=== PATIENT | male | born 1970 | race Caucasian/White ===

== ENCOUNTER 2017-10-05 07:31 | Emergency (ER) | payer BC ==
[2017-10-05 07:47] VITALS: BP 132/77
--- NOTE | 2017-10-05 08:05 | UC ---
Throat Pain/Nasal Tone HPI - HPI Summary HPI Summary: 47 yo male with one day hx of sore throat/congestion and left otalgia no f/c no lomax or myalgias - History of Current Complaint Chief Complaint: UCRespiratory Stated Complaint: SORE THROAT,EARS Time Seen by Provider: 10/05/17 07:48 Hx Obtained From: Patient Onset/Duration: Gradual Onset, Lasting Hours Severity: Mild Pain Intensity: 3 Pain Scale Used: 0-10 Numeric Cough: None Associated Signs & Symptoms: Positive: Nasal Discharge. Negative: Dysphagia, FB Sensation, Drooling, Hoarseness, Sinus Discomfort, Fever, Vomiting, Rash - Epiglottits Risk Factors Epiglottis Risk Factors: Negative - Allergies/Home Medications Allergies/Adverse Reactions: Allergies Allergy/AdvReac Type Severity Reaction Status Date / Time No Known Allergies Allergy Verified 10/05/17 07:41 Home Medications: Home Medications Pregabalin CAP(*) [Lyrica CAP(*)] 50 mg PO DAILY 10/05/17 [History Confirmed ] Pregabalin CAP(*) [Lyrica CAP(*)] 100 mg PO BID 10/05/17 [History Confirmed ] PMH/Surg Hx/FS Hx/Imm Hx Previously Healthy: Yes Endocrine History: Diabetes - Surgical History Surgical History: Yes Surgery Procedure, Year, and Place: Lumbar Discectomy, T&A, Ear Tubes as a child - Family History Known Family History: Positive: Cardiac Disease, Hypertension, Diabetes - Social History Alcohol Use: None Substance Use Type: None Smoking Status (MU): Never Smoked Tobacco - Immunization History Most Recent Influenza Vaccination: 2017 Review of Systems Constitutional: Negative Skin: Negative Eyes: Negative ENT: Sore Throat, Ear Ache, Nasal Discharge Respiratory: Negative Cardiovascular: Negative Gastrointestinal: Negative Genitourinary: Negative Motor: Negative Neurovascular: Negative Musculoskeletal: Negative Neurological: Negative Psychological: Negative Is Patient Immunocompromised?: No All Other Systems Reviewed And Are Negative: Yes Physical Exam Triage Information Reviewed: Yes Appearance: Well-Appearing, No Pain Distress, Well-Nourished Vital Signs: Initial Vital Signs Temp 96.9 F 10/05/17 07:43 Pulse 67 10/05/17 07:43 Resp 20 10/05/17 07:43 BP 132/77 10/05/17 07:43 Pulse Ox 98 10/05/17 07:43 Vital Signs Reviewed: Yes Eyes: Positive: Conjunctiva Clear ENT: Positive: Pharyngeal erythema, Nasal congestion, TM bulging - left, TM dull - left. Negative: Hearing grossly normal - decreased hearing left ear Dental Exam: Normal Neck: Positive: Supple, Nontender, No Lymphadenopathy Respiratory: Positive: Lungs clear, Normal breath sounds, No respiratory distress, No accessory muscle use Cardiovascular: Positive: RRR, No Murmur Abdominal Exam: Normal Bowel Sounds: Positive: Present Musculoskeletal Exam: Normal Neurological: Positive: Alert Psychological Exam: Normal Skin Exam: Normal Throat Pain/Nasal Course/Dx - Differential Dx/Diagnosis Provider Diagnoses: left serous otitis media. viral URI Discharge - Discharge Plan Condition: Stable Disposition: HOME Prescriptions: Fluticasone NASAL SPRAY 50MCG* [Flonase NASAL SPRAY 50MCG*] 2 spray BOTH NARES DAILY #1 btl Patient Education Materials: Serous Otitis Media (ED) Referrals: Bird Mccann DO [Primary Care Provider] - 3 Days Additional Instructions: rest AFRIN nasal spray 2 sprays each nostril three times daily x three days flonase recheck for new or worsening symptoms
== END 2017-10-05 08:16 | disposition home or self-care (01) ==
LOC: UCCORT 07:31
DX: J06.9 Acute upper respiratory infection, unspecified (principal); H65.92 Unspecified nonsuppurative otitis media, left ear; E11.9 Type 2 diabetes mellitus without complications
CPT/HCPCS: 87651; 99212; G0463

== ENCOUNTER 2017-11-16 07:31 | Emergency (ER) | payer BC ==
[2017-11-16 07:48] VITALS: BP 138/70
--- NOTE | 2017-11-16 07:59 | UC ---
Respiratory Complaint HPI - HPI Summary HPI Summary: Cough and congestion and fever for about 2-3 days. No lung disease. He has DM II on metformin alone. No babies or elderly at home. - History of Current Complaint Chief Complaint: UCRespiratory Stated Complaint: COUGH/FEVER Time Seen by Provider: 11/16/17 07:46 Hx Obtained From: Patient Onset/Duration: Gradual Onset, Lasting Days Timing: Constant Severity Initially: Moderate Severity Currently: Moderate Pain Intensity: 0 Character: Cough: Nonproductive Aggravating Factors: Deep Breaths, Recumbent Position Alleviating Factors: Upright Position, Spontaneous Resolution Associated Signs And Symptoms: Positive: Fever, URI, Nasal Congestion. Negative : Hemoptysis, Dizziness, Calf Pain, Calf Swelling, Sinus Discomfort - Allergies/Home Medications Allergies/Adverse Reactions: Allergies Allergy/AdvReac Type Severity Reaction Status Date / Time No Known Allergies Allergy Verified 11/16/17 07:48 PMH/Surg Hx/FS Hx/Imm Hx Previously Healthy: No - sinusitis. - Surgical History Surgical History: Yes Surgery Procedure, Year, and Place: Lumbar Discectomy, T&A, Ear Tubes as a child - Family History Known Family History: Positive: Cardiac Disease, Hypertension, Diabetes - Social History Occupation: Employed Full-time Lives: With Family Alcohol Use: None Substance Use Type: None Smoking Status (MU): Never Smoked Tobacco - Immunization History Most Recent Influenza Vaccination: 2017 Review of Systems Constitutional: Fever Respiratory: Cough All Other Systems Reviewed And Are Negative: Yes Physical Exam Triage Information Reviewed: Yes Appearance: Well-Appearing, No Pain Distress, Well-Nourished Vital Signs: Initial Vital Signs Temp 98.9 F 11/16/17 07:43 Pulse 77 11/16/17 07:43 Resp 18 11/16/17 07:43 BP 138/70 11/16/17 07:43 Pulse Ox 97 11/16/17 07:43 Vital Signs Reviewed: Yes Eye Exam: Normal Eyes: Positive: Conjunctiva Clear ENT: Positive: Normal ENT inspection, Pharynx normal, Nasal congestion, TMs normal, Uvula midline. Negative: Nasal drainage, TM bulging, TM dull, TM red, Tonsillar swelling, Tonsillar exudate, Trismus, Muffled voice, Hoarse voice, Dental tenderness, Sinus tenderness Neck: Positive: Supple, Nontender, No Lymphadenopathy Respiratory: Positive: Chest non-tender, Lungs clear, Normal breath sounds, No respiratory distress, No accessory muscle use. Negative: Respiratory distress, Decreased breath sounds, Accessory muscle use, Crackles, Rhonchi, Stridor, Wheezing Cardiovascular: Positive: RRR, No Murmur Abdomen Description: Positive: No Organomegaly, Soft. Negative: Distended, Guarding Musculoskeletal: Positive: Strength Intact Neurological: Positive: Alert, Muscle Tone Normal. Negative: Fatigued Psychological: Positive: Age Appropriate Behavior Skin: Negative: rashes UC Diagnostic Evaluation - Laboratory O2 Sat by Pulse Oximetry: 97 Respiratory Course/Dx - Course Course Of Treatment: possible flu but low risk for complicationsa nd this is day 3. No high risk household contacts. he appears quite well. - Differential Dx/Diagnosis Provider Diagnoses: viral illness. Viral URI. Discharge - Discharge Plan Condition: Good Disposition: HOME Patient Education Materials: Upper Respiratory Infection (ED) Referrals: Bird Mccann DO [Primary Care Provider] -
== END 2017-11-16 07:59 | disposition home or self-care (01) ==
LOC: UCCORT 07:31
DX: B34.9 Viral infection, unspecified (principal); J06.9 Acute upper respiratory infection, unspecified; E11.9 Type 2 diabetes mellitus without complications; Z79.84 Long term (current) use of oral hypoglycemic drugs
CPT/HCPCS: 99211; G0463

== ENCOUNTER 2018-07-15 15:58 | Emergency (ER) | payer BC ==
--- OUTSIDE RECORDS SUMMARY | 2018-07-15 16:14 | XMS REPORT | Continuity of Care Document ---
:1970 External Reference #:[id number] Author Name Delma Wright NP Address [address] [place] [address] Care Team Providers Name Role Phone Antwan Thomas DO Care Team Information Invasive Cardiologist Unavailable Antwan Thomas DO Primary Care Physician Unavailable Payers Type Date Identification Numbers Payment Provider Subscriber Policy Number: [id number] BS CNY Reynaldo Gonzalez PayID: [id number] [address] [address] [place] [address] Advance Directives Description No Information Available Problems Description No Information Family History Date Family Member(s) Problem(s) Comments Father Hearing Loss Mother Cancer Social History Type Date Description Comments Sex Unknown 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 every day Lyrica / Active Capsules 1 by Unknown 0000 mouth twice a day Metformin HCL / Active Tablets 1 by Unknown 0000 mouth twice a day No Active 09/19/ Hx Unknown Medications 2013 - 2015 Immunizations Description No Information Available Vital Signs Date Vital Result Comment 07/13/2018 3:27pm Weight 237.00 lb Height 65 inches 5'5" BMI (Body Mass Index) 39.4 kg/m2 BP Systolic 123 mmHg BP Diastolic 66 mmHg Heart Rate 79 /min O2 % BldC Oximetry 94 % Body Temperature 98.1 F Pain Level 0 04/09/2018 11:38am Weight 231.00 lb Height 65 inches 5'5" BMI (Body Mass Index) 38.4 kg/m2 BP Systolic 145 mmHg BP Diastolic 86 mmHg Heart Rate 63 /min O2 % BldC Oximetry 96 % Body Temperature 97.6 F Pain Level 0 01/19/2018 3:14pm Weight 224.00 lb Height 65 inches 5'5" BMI (Body Mass Index) 37.3 kg/m2 BP Systolic 156 mmHg BP Diastolic 101 mmHg Heart Rate 68 /min O2 % BldC Oximetry 95 % Body Temperature 97.6 F Pain Level 0 05/26/2017 9:30am Weight 229.00 lb Height 65 inches 5'5" BMI (Body Mass Index) 38.1 kg/m2 BP Systolic 149 mmHg BP Diastolic 89 mmHg Heart Rate 79 /min O2 % BldC Oximetry 97 % Body Temperature 97.3 F [place] Score 5 Pain Level 0 05/16/2016 9:23am Weight 207.38 lb Height 65 inches 5'5" BMI (Body Mass Index) 34.5 kg/m2 BP Systolic 152 mmHg BP Diastolic 92 mmHg Heart Rate 77 /min O2 % BldC Oximetry 98 % Body Temperature 97.2 F [place] Score 6 03/08/2015 4:05pm Weight 223.25 lb with shoes Height 65 inches 5'5" BMI (Body Mass Index) 37.1 kg/m2 BP Systolic 138 mmHg BP Diastolic 84 mmHg Heart Rate 82 /min O2 % BldC Oximetry 97 % Body Temperature 98.1 F Neck Circumference in inches 7 09/19/2014 3:54pm Weight 235.00 lb Height 65 inches 5'5" BMI (Body Mass Index) 39.1 kg/m2 BP Systolic 136 mmHg BP Diastolic 82 mmHg Heart Rate 76 /min O2 % BldC Oximetry 94 % Body Temperature 97.9 F [place] Score 19 Results Description No Information Available Procedures Date Code Description Status 07/13/2018 11666 Tympanometry Completed 07/13/2018 85886 Audiometry, Comprehensive Completed 04/09/2018 40778 Tympanometry Completed 04/09/2018 74503 Audiometry, Comprehensive Completed 02/25/2018 08241 Tympanostomy, Gen. Anesth. Completed 02/25/2018 71577 Anesthesia, Tympanotomy Completed 01/19/2018 77098 Tympanometry Completed 01/19/2018 20056 Audiometry, Comprehensive Completed 11/08/2014 57701 Sleep Staging 4Or More Para Completed 10/10/2014 43361 Sleep Staging 4Or More Para Completed 09/19/2014 94049 Fiberoptic Laryngoscopy,Diag. 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 H69.92 Unspecified 3:15p Eustachian tube disorder, left ear G47.33 Obstructive sleep apnea (adult) (pediatric) Office Visit 05/26/2017 8:30a Main Office Delma Romero G47.33 Obstructive sleep SHARMIN Wright apnea (adult) (pediatric) Office Visit 05/16/2016 9:15a Main Office Delma Romero G47.33 Obstructive sleep SHARMIN Wright apnea (adult) (pediatric) J34.3 Hypertrophy of nasal turbinates Office Visit 03/08/2015 4:15p Main Office Delma Romero 327.23 Obstructive Sleep SHARMIN Wright Apnea Adult & Pediatric Office Visit 10/24/2014 4:00p Main Office Delma Romero 327.23 Obstructive Sleep SHARMIN Wright Apnea Adult & Pediatric Office Visit 09/19/2014 3:30p Main Office Morales Guerra, 780.50 Sleep Disturbance Jasmin Unspec 786.09 Dyspnea & Respiratory Abnormalities Other 530.81 Esophageal Reflux Plan of Treatment Future Appointment(s):01/11/2019 3:30 pm - Delma Wright NP at Main Office
--- OUTSIDE RECORDS SUMMARY | 2018-07-15 16:15 | XMS REPORT | Continuity of Care Document ---
:1970 External Reference #:[id number] Author Name Vani Diaz Care Team Providers Name Role Phone Antwan Thomas DO Care Team Information Showplace Manager Unavailable Antwan Thomas DO Primary Care Physician Unavailable Payers Type Date Identification Numbers Payment Provider Subscriber Policy Number: [id number] BS CNY Reynaldo Gonzalez PayID: [id number] [address] [address] [place] [address] Advance Directives Description No Information Available Problems [...] Oximetry 97 % Body Temperature 97.3 F [place] Score 5 Pain Level 0 05/16/2016 9:23am Weight 207.38 lb Height 65 inches 5'5" BMI (Body Mass Index) 34.5 kg/m2 BP Systolic 152 mmHg BP Diastolic 92 mmHg Heart Rate 77 /min O2 % BldC Oximetry 98 % Body Temperature 97.2 F [place] Score 6 03/08/2015 4:05pm Weight 223.25 lb [...] Oximetry 94 % Body Temperature 97.9 F [place] Score 19 Results Description No Information Available Procedures Date Code Description Status 04/09/2018 27409 Tympanometry Completed 04/09/2018 16232 Audiometry, Comprehensive Completed 02/25/2018 44469 Tympanostomy, Gen. Anesth. Completed 02/25/2018 54335 Anesthesia, Tympanotomy Completed 01/19/2018 85496 Tympanometry Completed 01/19/2018 10107 Audiometry, Comprehensive Completed 11/08/2014 07962 Sleep Staging 4Or More Para Completed 10/10/2014 49917 Sleep Staging 4Or More Para Completed 09/19/2014 40492 Fiberoptic Laryngoscopy,Diag. 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 H69.92 Unspecified 3:15p Eustachian tube disorder, left ear G47.33 Obstructive sleep apnea (adult) (pediatric) Office Visit 05/26/2017 8:30a Main Office Delma Romero G47.33 Obstructive sleep Wright, PRUNE WASHER apnea (adult) (pediatric) Office Visit 05/16/2016 9:15a Main Office Delma A G47.33 Obstructive sleep Kyle, PRUNE WASHER apnea (adult) (pediatric) J34.3 Hypertrophy of nasal turbinates Office Visit 03/08/2015 4:15p Main Office Delma Romero 327.23 Obstructive Sleep Wright, PRUNE WASHER Apnea Adult & Pediatric Office Visit 10/24/2014 4:00p Main Office Delma A 327.23 Obstructive Sleep Wright, PRUNE WASHER Apnea Adult & Pediatric Office Visit 09/19/2014 3:30p Main Office Morales Guerra, 780.50 Sleep Disturbance Jasmin Unspec 786.09 Dyspnea & Respiratory Abnormalities Other 530.81 Esophageal Reflux Plan of Treatment No Information Available
--- OUTSIDE RECORDS SUMMARY | 2018-07-15 16:15 | XMS REPORT ---
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 Bird Mccann DO Primary Care Physician Unavailable Payers Type Date Identification Numbers Payment Provider Subscriber Commercial Effective: Policy Number: [facility] Commercial Reynaldo Gonzalez 2011 [id number] Group Number: [id number] [address] [address] PayID: [id number] [place] [id number] Medigap Part B Effective: Policy Number: [facility] Commercial Reynaldo Miles 2009 [id number] Lisa Expires: 2011 PayID: [id number] [address] [address] [place] [phone] Problems Date Description Provider Status Onset: 10/24/2014 Obstructive sleep apnea of adult Antwan Thomas DO Active Onset: 04/09/2016 Type 2 diabetes mellitus Debbie Cobian M.D. 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 [employer] Work Status Currently Working Hand Dominance RIGHT-handed Cigarette Use Never Smoked Cigarettes ETOH Use Denies alcohol use Smoking Patient has never smoked Allergies, Adverse Reactions, Alerts Date Description Reaction Status Severity Comments 01/12/2015 NKDA active Medications Medication Date Status Form Strength Qnty SIG Indications Ordering Provider Amoxicillin Hx Tablets 875mg 20tabs 1 pill by J01.90 Ramy, 018 - mouth Bird, twice a DO 018 day x 10 days Freestyle Active Strips test every Mccann, Insulinx Blood 018 day and as Bird, Glucose Test needed, DO Strips dx:e11.65 Freestyle Active Misc 200unit as Ramy, Lancets 018 s directed Bird, twice DO daily Lisinopril Active Tablets 5mg 90tabs 1 by mouth E11.9 Mccann, 017 every day Bird, DO Lyrica Active Capsules 50mg 120caps 2 tabs by M51.17 Melfi, 016 mouth Debbie, every M.D. morning, 1 tab every afternoon, and 1 tab in the evening. mdd 4 M51.16 M96.1 Freestyle Lite Test 01/08/2016 Active Strips 100units test daily Mccann, and as Bird, needed dx DO 250.00 mdd 3 Metformin HCL ER 01/31/2015 Active Tablets ER 10 90tabs 1 by mouth E1 Mccann, (Osm) 24HR 00 every in the 1. Bird mg morning 9 DO Methylprednisolone 12/18/2017 - Hx Tablets 4m 21tabs Dose pack as H6 Ramy, 12/24/2017 g instructed 9. Bird, on box 92 DO Fluticasone 12/18/2017 - Hx Suspension 50 16units two sprays H6 Mccann, Propionate 04/13/2018 mc in each 9. Bird g/ nostril once 92 DO Ac daily t Cyclobenzaprine HCL 09/03/2017 - Hx Tablets 5m 30tabs take 1-2 Melfi, 06/29/2018 g tablet by Debbie, mouth at M.D. bedtime as needed Aspirin 07/17/2017 - Hx Tablets DR 81 1 by mouth E1 Martha, 10/08/2017 mg every day 1. Christoph Moncada DO Azithromycin 11/27/2016 - Hx Tablets 50 7tabs 1 by mouth H6 Martha, 02/27/2017 0m every day 5. nicky Moncada 02 DO Claritin-D 12 Hour 11/27/2016 - Hx Tablets ER 5- 60tabs 1 by mouth H6 Martha, 02/27/2017 12HR 12 twice a day 5. Anwtan 0m 02 DO g Aspirin 09/23/2016 - Hx Tablets DR 81 1 by mouth E1 Martha, 02/27/2017 mg every day 1. Antwan, 9 DO Xanax 09/12/2016 - Hx Tablets 0. 2tabs 1 to 2 by Melfi, 10/03/2016 25 mouth 20 Debbie, mg minutes M.D. prior to procedure Cyclobenzaprine HCL 09/12/2016 - Hx Tablets 5m 30tabs take 1-2 Melfi, 11/27/2016 g tablet by Debbie, mouth at M.D. bedtime as needed Valium 04/09/2016 - Hx Tablets 5m 1tabs 1 by mouth Melfi, 06/28/2016 g 45 minutes Debbie, prior to M.D. procedures Dexamethasone 03/28/2016 - Hx Tablets 0. QS 4 po q d x 3 M5 Martha, 04/26/2016 5m days then 3 4. nicky Moncada po q d x 3 16 DO days then 2 po q d x 3 then 3 days then 1 po q d x 3 days then stop Skelaxin 03/28/2016 - Hx Tablets 80 30tabs 1 by mouth M5 Martha, 04/09/2016 0m three times 4. nicky Moncada a day 16 DO Amoxicillin 01/13/2016 - Hx Tablets 87 20tabs 1 by mouth J0 Digiovann 01/23/2016 5m twice a day 1. katy g for 10 days 90 MD Tin Doyle 01/08/2016 - Hx 100units check every Mccann, Misc 10/10/2017 day and as Bird, needed dx: DO 250.00 Loratadine-D 12HR 06/05/2015 - Hx Tablets ER 5- 60tabs 1 PO bid 38 Martha, 09/04/2015 12HR 12 1. Maximo Moncadam 81 DO g Fluticasone 06/05/2015 - Hx Suspension 50 1units 2 sprays 38 Martha, Propionate 09/04/2015 mc each nare 1. nicky Moncada/ every day 81 DO Ac t Glumetza 09/30/2014 - Hx Tablets ER 50 30tabs take 1 Martha, 01/31/2015 24HR 0m tablets by nicky Moncada mouth every DO day with meal Cyclobenzaprine HCL - Hx Tablets 10 30tabs 1 po QHS prn Melfi, 05/21/2016 mg Jasmin Lewis Lyrica - Hx Capsules 50 30caps take 2 caps Melfi, 08/15/2016 mg by mouth Debbie, three times M.D. a day Hydrocodone-Acetamin - Hx Tablets 5- 1 every 6 Unknown ophen 04/26/2016 32 hours as 5m needed g Lyrica - Hx Capsules 10 1 by mouth Melfi, 07/31/2016 0m three times Debbie saunders a day Medications Administered in Office Medication Date Status Form Strength Qnty SIG Indications Ordering Provider Low Osmolar 09/19/ Administered Injection Melfi, Contrast 2015 Debbie, Material M.D. 200-299MG/ML Iodine 1ML Decadron 1MG 09/19/ Administered Injection Melfi, Dexamethasone 2015 Debbie, Sodium Phosphate M.D. 1MG Low Osmolar 05/06/ Administered Injection Melfi, Contrast 2015 Debbie, Material M.D. 200-299MG/ML Iodine 1ML Decadron 1MG 05/06/ Administered Injection Melfi, Dexamethasone 2015 Debbie, Sodium Phosphate M.D. 1MG Immunizations CPT Code Status Date Vaccine Reaction Lot # [id number] Given 07/27/2017 Influenza Vac, 3 Yrs & Older, Quadrivalent, Split, Im Use Q2037 Given 08/06/2015 Fluvirin Immunization Given At Pharmacy [facility]. [id number] Given 08/06/2015 Influenza Vaccine Preservative Free 6-35 Months Of Age [id number] Given 08/08/2011 Afluria Or Fluvirin Flu Vac VIS DATE 04/30/11 Intramuscular Q2035 Refused 06/29/2018 Afluria Imunization Vital Signs Date Vital Result Comment 06/29/2018 Body Temperature 99.4 F Weight 230.00 lb Heart Rate 78 /min BP Systolic 144 mmHg BP Diastolic 80 mmHg Respiratory Rate 16 /min Height 65 inches 5'5" BMI (Body Mass Index) 38.3 kg/m2 04/13/2018 Weight 230.00 lb Heart Rate 80 /min BP Systolic 138 mmHg BP Diastolic 78 mmHg Respiratory Rate 16 /min Height 65 inches 5'5" BMI (Body Mass Index) 38.3 kg/m2 03/04/2018 Weight 215.00 lb Heart Rate 67 /min BP Systolic 137 mmHg BP Diastolic 82 mmHg Height 65 inches 5'5" BMI (Body Mass Index) 35.8 kg/m2 12/18/2017 Weight 228.00 lb Heart Rate 72 /min BP Systolic 120 mmHg BP Diastolic 80 mmHg Respiratory Rate 18 /min Height 64 inches 5'4" BMI (Body Mass Index) 39.1 kg/m2 10/08/2017 Weight 238.00 lb Heart Rate 76 /min BP Systolic 144 mmHg BP Diastolic 82 mmHg Respiratory Rate 17 /min Height 64 inches 5'4" BMI (Body Mass Index) 40.8 kg/m2 09/03/2017 Weight 230.00 lb Heart Rate 79 /min BP Systolic 151 mmHg BP Diastolic 94 mmHg Height 64 inches 5'4" BMI (Body Mass Index) 39.5 kg/m2 07/17/2017 Weight 232.00 lb Heart Rate 84 /min BP Systolic 132 mmHg BP Diastolic 86 mmHg Respiratory Rate 18 /min Height 64 inches 5'4" BMI (Body Mass Index) 39.8 kg/m2 02/27/2017 Weight 217.25 lb Heart Rate 72 /min 72 Reg BP Systolic 126 mmHg BP Diastolic 76 mmHg BP Systolic Recheck 128 mmHg BP Diastolic Recheck 78 mmHg Respiratory Rate 16 /min Height 64 inches 5'4" BMI (Body Mass Index) 37.3 kg/m2 11/27/2016 Body Temperature 98.8 F Weight 231.00 lb Heart Rate 78 /min BP Systolic 130 mmHg BP Diastolic 82 mmHg Respiratory Rate 18 /min Height 64 inches 5'4" BMI (Body Mass Index) 39.6 kg/m2 10/03/2016 Weight 221.00 lb Height 64 inches 5'4" BMI (Body Mass Index) 37.9 kg/m2 09/23/2016 Weight 221.44 lb Heart Rate 66 /min 68 Reg BP Systolic 120 mmHg BP Diastolic 80 mmHg BP Systolic Recheck 120 mmHg BP Diastolic Recheck 80 mmHg Respiratory Rate 18 /min Height 64 inches 5'4" BMI (Body Mass Index) 38.0 kg/m2 09/12/2016 Weight 210.00 lb Height 64 inches 5'4" BMI (Body Mass Index) 36.0 kg/m2 06/28/2016 Weight 209.00 lb Height 64 inches 5'4" BMI (Body Mass Index) 35.9 kg/m2 05/21/2016 Weight 209.00 lb Heart Rate 72 /min BP Systolic 132 mmHg BP Diastolic 68 mmHg Respiratory Rate 18 /min Height 64 inches 5'4" BMI (Body Mass Index) 35.9 kg/m2 04/26/2016 Weight 218.00 lb Height 64 inches 5'4" BMI (Body Mass Index) 37.4 kg/m2 04/09/2016 Weight 218.00 lb Heart Rate 91 /min BP Systolic 110 mmHg BP Diastolic 80 mmHg Height 64 inches 5'4" BMI (Body Mass Index) 37.4 kg/m2 04/04/2016 Weight 213.00 lb Heart Rate 74 /min BP Systolic 128 mmHg BP Diastolic 74 mmHg Respiratory Rate 18 /min Height 64 inches 5'4" BMI (Body Mass Index) 36.6 kg/m2 03/28/2016 Weight 213.00 lb Heart Rate 72 /min BP Systolic 142 mmHg BP Diastolic 90 mmHg Respiratory Rate 18 /min Height 64 inches 5'4" BMI (Body Mass Index) 36.6 kg/m2 01/30/2016 Weight 216.00 lb Heart Rate 78 /min 80 Reg BP Systolic 120 mmHg BP Diastolic 80 mmHg BP Systolic Recheck 120 mmHg BP Diastolic Recheck 80 mmHg Respiratory Rate 18 /min Height 64 inches 5'4" BMI (Body Mass Index) 37.1 kg/m2 01/13/2016 Body Temperature 99.3 F Weight 236.00 lb Heart Rate 86 /min BP Systolic 134 mmHg BP Diastolic 82 mmHg Respiratory Rate 18 /min Height 65 inches 5'5" O2 % BldC Oximetry 96 % Ra BMI (Body Mass Index) 39.3 kg/m2 09/04/2015 Weight 238.00 lb Heart Rate 66 /min BP Systolic 124 mmHg BP Diastolic 78 mmHg Respiratory Rate 16 /min Height 65 inches 5'5" BMI (Body Mass Index) 39.6 kg/m2 06/05/2015 Weight 236.00 lb Heart Rate 72 /min 72 Reg BP Systolic 130 mmHg BP Diastolic 90 mmHg BP Systolic Recheck 130 mmHg BP Diastolic Recheck 80 mmHg Respiratory Rate 24 /min Height 64.5 inches 5'4.50" BMI (Body Mass Index) 39.9 kg/m2 01/31/2015 Weight 226.00 lb Heart Rate 82 /min BP Systolic 144 mmHg BP Diastolic 86 mmHg BP Systolic Recheck 138 mmHg BP Diastolic Recheck 86 mmHg Respiratory Rate 18 /min Height 64.5 inches 5'4.50" BMI (Body Mass Index) 38.2 kg/m2 09/30/2014 Weight 230.00 lb Heart Rate 74 /min BP Systolic 132 mmHg BP Diastolic 86 mmHg Respiratory Rate 18 /min Height 64.5 inches 5'4.50" 08/30/2014 BP Systolic 130 mmHg BP Diastolic 84 mmHg 08/30/2014 Weight 235.00 lb Heart Rate 66 /min 68 Reg BP Systolic 130 mmHg BP Diastolic 90 mmHg Respiratory Rate 18 /min Height 64.5 inches 5'4.50" 07/13/2014 Body Temperature 97.8 F Weight 240.00 lb Heart Rate 82 /min BP Systolic 130 mmHg BP Diastolic 80 mmHg Respiratory Rate 18 /min Height 65 inches 5'5" 03/01/2014 Body Temperature 98.3 F Weight 233.00 lb Heart Rate 88 /min BP Systolic 142 mmHg BP Diastolic 96 mmHg Respiratory Rate 18 /min Height 65 inches 5'5" Results Test Date Test Result H/L Range Note Hemoglobin A1c 06/16/2018 Hemoglobin A1c 6.1 % High 4.1-5.9 Estimated Average Glucose Calc 128 mg/dL 71-140 Comprehensive Met Panel-FCMG 06/16/2018 Sodium 138 mmol/L 135-146 1 Potassium 4.2 mmol/L 3.5-5.2 Chloride# 102 mmol/L 97-110 2 Carbon Dioxide 27 mmol/L 24-34 Glucose 88 mg/dL 70-105 BUN 11 mg/dL 6-26 Creatinine 0.8 mg/dL 0.5-1.4 Calcium 9.6 mg/dL 8.5-10.2 Total Protein 6.8 g/dL 6.0-8.0 Albumin 4.4 g/dL 3.6-4.9 Globulin 2.4 g/dL 2.0-3.5 A/G Ratio 1.8 Ratio 1.0-2.2 Total Bilirubin 0.9 mg/dL 0.1-1.3 Alkaline Phosphatase 42 U/L 24-140 Alt 48 U/L High 3-42 Ast 33 U/L 8-42 Romina Egfr >60 >60 3 Non Romina Egfr >60 >60 4 Anion Gap 9 mmol/L 5-15 5 Laboratory test finding 06/16/2018 Vitamin D 25 Hydroxy 23 ng/mL Low 30- 100 6 CBC with Auto Diff-fcmg 06/16/2018 WBC 8.5 K/uL 4.1-11.0 RBC 5.34 M/uL 4.60-6.10 Hemoglobin 15.4 gm/dL 13.5-18.0 Hematocrit 45.8 % 41.0-53.0 MCV 85.8 fL 80.0-97.0 MCH 28.9 pg 27.0-32.0 MCHC 33.7 g/dL 32.0-36.0 RDW 13.5 % 11.5-14.5 PLT Count 205 K/ul 140-400 MPV 9.9 FL 7.1-10.7 Neutrophil 63.5 % 35.0-75.0 Lymphocyte 25.6 % 16.0-52.0 Monocyte 8.4 % 2.0-10.0 Eosinophil 2.0 % 0.0-5.0 Basophil 0.5 % 0.0-4.0 Abs Neutrophils 5.4 K/uL 2.1-8.0 Abs Lymphocytes 2.2 K/uL 0.8-5.5 Abs Monocytes 0.7 K/uL 0.1-1.0 Abs Eosinophils 0.2 K/uL 0.0-0.5 Abs Basophils 0.0 K/uL 0.0-0.3 Lipid 06/16/2018 Cholesterol 175 mg/dL 50-199 Triglycerides 54 mg/dL 30-200 HDL 38 mg/dL - 7 Chol/ HDL Ratio 4.6 ratio 4.0-6.7 VLDL 11 mg/dL 2-29 LDL (Calc) 127 mg/dL High 20-99 8 Laboratory test finding 06/16/2018 TSH 2.68 uIU/mL 0.35-4.94 Lipid 12/18/2017 Cholesterol 130 mg/dL 50-199 Triglycerides 45 mg/dL 30-200 HDL 39 mg/dL -71 9 Chol/ HDL Ratio 3.3 ratio Low 4.0-6.7 VLDL 9 mg/dL 2-29 LDL (Calc) 82 mg/dL 20-99 10 Comprehensive Met Panel-FCMG 12/18/2017 Sodium 140 mmol/L 135-146 11 Potassium 4.4 mmol/L 3.5-5.2 Chloride# 103 mmol/L 97-110 12 Carbon Dioxide 28 mmol/L 24-34 Glucose 105 mg/dL 70-105 BUN 13 mg/dL 6-26 Creatinine 0.9 mg/dL 0.5-1.4 Calcium 9.6 mg/dL 8.5-10.2 Total Protein 7.4 g/dL 6.0-8.0 Albumin 4.7 g/dL 3.6-4.9 Globulin 2.7 g/dL 2.0-3.5 A/G Ratio 1.7 Ratio 1.0-2.2 Total Bilirubin 1.1 mg/dL 0.1-1.3 Alkaline Phosphatase 42 U/L 24-140 Alt 57 U/L High 3-42 Ast 40 U/L 8-42 Romina Egfr >60 >60 13 Non Romina Egfr >60 >60 14 Anion Gap 9 mmol/L 5-15 15 Hemoglobin A1c 12/18/2017 Hemoglobin A1c 5.6 % 4.1-5.9 Estimated Average Glucose Calc 114 mg/dL 71-140 Hemoglobin A1c 06/30/2017 Hemoglobin A1c 6.0 % 4.1-6.5 Estimated Average Glucose Calc 126 71-140 Basic (BMP) 06/30/2017 Sodium 141 mmol/L 135-146 16 Potassium 3.9 mmol/L 3.5-5.2 Chloride# 105 mmol/L 97-110 17 Carbon Dioxide 25 mmol/L 24-34 Glucose 69 mg/dL Low 70-105 BUN 11 mg/dL 6-26 Creatinine 0.8 mg/dL 0.5-1.4 Calcium 9.3 mg/dL 8.5-10.2 Non Romina Egfr >60 >60 18 Romina Egfr >60 >60 19 Anion Gap 11 mmol/L 7-16 20 Lipid 06/30/2017 Cholesterol 148 mg/dL 50-199 Triglycerides 46 mg/dL 30-150 HDL 44 mg/dL 40-71 21 Chol/ HDL Ratio 3.3 ratio Low 4.0-6.7 VLDL 9 mg/dL 2-29 LDL (Calc) 95 mg/dL 20-99 22 Hepatic Panel (LFT) 06/30/2017 Total Protein 7.0 g/dL 6.0-8.0 Albumin 4.3 g/dL 3.6-4.9 Total Bilirubin 0.8 mg/dL 0.1-1.3 Direct Bilirubin 0.2 mg/dL 0.0-0.4 Alkaline Phosphatase 49 U/L 24-140 Alt 44 U/L High 3-42 Ast 33 U/L 8-42 Laboratory test finding 06/30/2017 Vit D25oh 22 ng/mL Low 31-100 Laboratory test finding 06/30/2017 Microalbumin, Random 27.4 ug/ml High 0.0-20.0 Urine CBC With Auto Diff 09/18/2016 WBC 9.4 K/uL 4.1-11.0 23 RBC 5.36 M/uL 4.60-6.10 23 Hemoglobin 15.4 gm/dL 13.5-18.0 23 Hematocrit 45.7 % 41.0-53.0 23 MCV 85.2 fL 80.0-97.0 23 MCH 28.7 pg 27.0-32.0 23 MCHC 33.7 g/dL 32.0-36.0 23 RDW 13.1 % 11.5-14.5 23 PLT Count 206 K/ul 140-400 23 Neutrophil 65.1 % 35.0-75.0 23 Lymphocyte 24.3 % 16.0-52.0 23 Monocyte 8.3 % 2.0-10.0 23 Eosinophil 1.8 % 0.0-5.0 23 Basophil 0.5 % 0.0-4.0 23 Abs Neutrophils 6.1 K/uL 2.1-8.0 23 Abs Lymphocytes 2.3 K/uL 0.8-5.5 23 Abs Monocytes 0.8 K/uL 0.1-1.0 23 Abs Eosinophils 0.2 K/uL 0.0-0.5 23 Abs Basophils 0.0 K/uL 0.0-0.3 23 Basic (BMP) 09/18/2016 Sodium 137 mmol/L 134-142 23 Potassium 3.7 mmol/L 3.5-5.2 23 Chloride 101 mmol/L 97-109 23 Carbon Dioxide 27 mmol/L 24-34 23 Glucose 82 mg/dL 70-105 23 BUN 12 mg/dL 6- 23 Creatinine 0.8 mg/dL 0.5-1.4 23 Calcium 9.2 mg/dL 8.5-10.2 23 Anion Gap 13 mmol/L 6-14 23 Non Romina Egfr >60 >60 23, 24 Romina Egfr >60 >60 23, 25 Laboratory test finding 09/18/2016 Hemoglobin A1c 6.0 % 4.1-6.5 23 Microalbumin, Random Urine 20.4 ug/ml High 0.0-20.0 23 BUN/Creat/GFR Panel 04/10/2016 BUN 22 mg/dL 6-26 BUN/CR 23 ratio High 12-20 Creatinine 1.0 mg/dL 0.5-1.4 Romina Egfr >60 >60 26 Non Romina Egfr >60 >60 27 CBC With Auto Diff 12/29/2015 WBC 6.8 K/uL 4.1-11.0 23 RBC 5.40 M/uL 4.60-6.10 23 Hemoglobin 15.5 gm/dL 13.5-18.0 23 Hematocrit 47.4 % 41.0-53.0 23 MCV 87.8 fL 80.0-97.0 23 MCH 28.8 pg 27.0-32.0 23 MCHC 32.8 g/dL 32.0-36.0 23 RDW 13.4 % 11.5-14.5 23 PLT Count 187 K/ul 140-400 23 Neutrophil 61.2 % 35.0-75.0 23 Lymphocyte 27.0 % 16.0-52.0 23 Monocyte 8.7 % 2.0-10.0 23 Eosinophil 2.4 % 0.0-5.0 23 Basophil 0.7 % 0.0-4.0 23 Abs Neutrophils 4.2 K/uL 2.1-8.0 23 Abs Lymphocytes 1.8 K/uL 0.8-5.5 23 Abmon 0.6 K/uL 0.1-1.0 23 Abs Eosinophils 0.2 K/uL 0.0-0.5 23 Abs Basophils 0.0 K/uL 0.0-0.3 23 Comprehensive Metabolic (CMP) 12/29/2015 Sodium 136 mmol/L 134-142 23 Potassium 3.9 mmol/L 3.5-5.2 23 Chloride 103 mmol/L 97-109 23 Carbon Dioxide 26 mmol/L 24-34 23 Glucose 99 mg/dL 70-105 23 BUN 11 mg/dL 6-26 23 Creatinine 0.8 mg/dL 0.5-1.4 23 Calcium 9.5 mg/dL 8.5-10.2 23 Total Protein 7.0 g/dL 6.0-8.0 23 Albumin 4.3 g/dL 3.6-4.9 23 Globulin 2.7 g/dL 2.0-3.5 23 A/G Ratio 1.6 Ratio 1.0-2.2 23 Total Bilirubin 1.2 mg/dL 0.1-1.3 23 Alkaline Phosphatase 45 U/L 24-140 23 Alt 61 U/L High 3-42 23 Ast 42 U/L 8-42 23 Anion Gap 11 mmol/L 6-14 23 Romina Egfr >60 >60 23, 28 Non Romina Egfr >60 >60 23, 29 Lipid 12/29/2015 Cholesterol 119 mg/dL 50-199 23 Triglycerides 45 mg/dL 30-150 23 HDL 35 mg/dL Low 40-71 23, 30 Chol/ HDL Ratio 3.4 ratio Low 4.0-6.7 23 VLDL 9 mg/dL 2-29 23 LDL (Calc) 75 mg/dL 20-99 23, 31 Laboratory test finding 12/29/2015 TSH 1.73 uIU/mL 0.35-4.94 23 Vitamin B12 582 pg/mL 180-914 23 Vit D,25 Hydroxy 20 ng/mL Low 31-100 23 Hemoglobin A1c 5.7 % 4.1-6.5 23 Basic (BMP) 05/29/2015 Sodium 138 mmol/L 134-142 32 Potassium 4.0 mmol/L 3.5-5.2 32 Chloride 104 mmol/L 97-109 32 Carbon Dioxide 27 mmol/L 24-34 32 Glucose 107 mg/dL High 70-105 32 BUN 12 mg/dL 6-26 32 Creatinine 0.8 mg/dL 0.5-1.4 32 Calcium 9.4 mg/dL 8.5-10.2 32 Anion Gap 11 mmol/L 6-14 32 Non Romina Egfr >60 >60 32, 33 Romina Egfr >60 >60 32, 34 Laboratory test finding 05/29/2015 Hemoglobin A1c 6.1 % 4.1-6.5 32 Microalbumin, Random Urine 20.0 ug/ml 0.0-20.0 32 Laboratory test finding 09/30/2014 Glucose 125 mg/dL High 74-106 35 Glycohemoglobin (A1c) 6.6 % High 4.2-6.5 36 eAG 143 mg/dL Laboratory test finding 08/31/2014 % Baso. 1.3 % 0.0-2.0 % Eos. 4.2 % High 0.0-4.0 % Lymph 36 % 20-44 % Vermilion 9.1 % 2.0-10.0 % Coleen 50 % 50-70 A/G Ratio 1.3 ratio Low 1.6-2.2 Absolute Baso. 0.1 K/ul 0.0-0.3 Absolute Eos. 0.3 K/ul 0.0-0.5 Absolute Lymph. 2.4 K/ul 0.8-4.8 Absolute Vermilion. 0.6 K/ul 0.1-1.0 Absolute Coleen. 3.39 K/ul 2.05-7.63 Albumin 4.4 g/dL 3.5-5.0 Alk. Phos. 64.0 U/L 30.0-126.0 Alt 59.0 U/L 21.0-72.0 Anion Gap 9.0 mmol/L Low 10.0-20.0 Ast 37.0 U/L 17.0-59.0 BUN 12.0 mg/dL 9.0-21.0 BUN/Creat Ratio 13.3 ratio 12.0-20.0 Calcium 9.7 mg/dL 8.7-10.5 Chloride 106.0 mmol/L 98.0-107.0 Co2 27.0 mmol/L 22.0-30.0 Creatinine-Serum 0.9 mg/dL 0.8-1.5 Globulin 3.5 g/dL 2.7-4.3 Glucose 143.0 mg/dL High 75.0-110.0 HCT 47.9 % 37.0-51.0 HGB 16.2 Gm/dl High 12.0-16.0 MCH 29.4 pg 26.0-32.0 MCHC 33.9 g/dL 31.0-36.0 MCV 86.9 Fl 80.0-97.0 MPV 8.4 fL 6.0-10.0 PLT 247 K/ul 140-440 Potasium 4.6 mmol/L 3.6-5.0 RBC 5.5 M/ul 4.2-6.3 RDW 11.9 % 11.5-14.5 Sodium 142.0 mmil/L 137.0-145.0 TSH 2.66 uIU/ml 0.50-6.00 Total Bilirubin 0.6 mg/dL 0.2-1.3 Total Protein 7.9 g/dL 6.3-8.2 Vitamin D 24.6 ng/mL Low 30.0-96.0 WBC 6.8 K/ul 4.1-10.9 eGFR 101.5 mi/minper1.73 37 Lipid Panel 08/31/2014 Chol/HDL Ratio 4.9 ratio Cholesterol 183.0 mg/dL 50.0-199.0 HDL 37.0 mg/dL Low 40.0-67.0 LDL, Calculated 124.6 mg/dL 20.0-129.0 Triglycerides 107.0 mg/dL 30.0-150.0 vLDL 21.4 ng/dL 1 Updated reference range on new analyzer 2 Updated reference range on new analyzer 3 Concerning GFR Guidelines for Americans: Normal function or mild renal disease, if clinically at risk: >/=60 mL/min Moderately decreased: 30-59 Severely decreased: 15-29 Renal failure: <15 4 Concerning GFR Guidelines: Normal function or mild renal disease, if clinically at risk: >/=60 mL/min Moderately decreased: 30-59 Severely decreased: 15-29 Renal failure: <15 Glomerular Filtration Rate (GFR) is estimated based on the MDRD equation, which assumes a steady state for creatinine as recommended by the National Kidney Disease Education Program in conjunction with the National Institutes of Health and the National Kidney Foundation. Clinical conditions in which it may be necessary to measure GFR by using clearance methods include extremes of age and body size, severe malnutrition or obesity, diseases of skeletal muscle, paraplegia or quadriplegia, vegetarian diet, rapidly changing kidney function, and calculation of the dose of potentially toxic drugs that are excreted by the kidneys. 5 Updated Reference Range 6 Clinical Guidelines for recommended serum 25(OH)Vitamin D Deficient at less than 20 ng/mL Insufficient at 20 to <30 ng/mL Sufficient at 30-100 ng/mL Toxicity at greater than 100 ng/mL 7 Per NCEP ATP III Guidelines: Results lower than 40 mg/dL are suggestive of increased risk for coronary artery disease. Results > or=to 60 mg/dL are considered a negative risk factor. 8 Per NCEP ATP III Guidelines: Normal Population <130 Patients with medical conditions: CHD/DM Optimal: <100 Borderline high: 130-159 High: 160-189 Very high: >189 9 Per NCEP ATP III Guidelines: Results lower than 40 mg/dL are suggestive of increased risk for coronary artery disease. Results > or=to 60 mg/dL are considered a negative risk factor. 10 Per NCEP ATP III Guidelines: Normal Population <130 Patients with medical conditions: CHD/DM Optimal: <100 Borderline high: 130-159 High: 160-189 Very high: >189 11 Updated reference range on new analyzer 12 Updated reference range on new analyzer 13 Concerning GFR Guidelines for Americans: Normal function or mild renal disease, if clinically at risk: >/=60 mL/min Moderately decreased: 30-59 Severely decreased: 15-29 Renal failure: <15 14 Concerning GFR Guidelines: Normal function or mild renal disease, if clinically at risk: >/=60 mL/min Moderately decreased: 30-59 Severely decreased: 15-29 Renal failure: <15 Glomerular Filtration Rate (GFR) is estimated based on the MDRD equation, which assumes a steady state for creatinine as recommended by the National Kidney Disease Education Program in conjunction with the National Institutes of Health and the National Kidney Foundation. Clinical conditions in which it may be necessary to measure GFR by using clearance methods include extremes of age and body size, severe malnutrition or obesity, diseases of skeletal muscle, paraplegia or quadriplegia, vegetarian diet, rapidly changing kidney function, and calculation of the dose of potentially toxic drugs that are excreted by the kidneys. 15 Updated Reference Range 16 Updated reference range on new analyzer 17 Updated reference range on new analyzer 18 Concerning GFR Guidelines: Normal function or mild renal disease, if clinically at risk: >/=60 mL/min Moderately decreased: 30-59 Severely decreased: 15-29 Renal failure: <15 Glomerular Filtration Rate (GFR) is estimated based on the MDRD equation, which assumes a steady state for creatinine as recommended by the National Kidney Disease Education Program in conjunction with the National Institutes of Health and the National Kidney Foundation. Clinical conditions in which it may be necessary to measure GFR by using clearance methods include extremes of age and body size, severe malnutrition or obesity, diseases of skeletal muscle, paraplegia or quadriplegia, vegetarian diet, rapidly changing kidney function, and calculation of the dose of potentially toxic drugs that are excreted by the kidneys. 19 Concerning GFR Guidelines for Americans: Normal function or mild renal disease, if clinically at risk: >/=60 mL/min Moderately decreased: 30-59 Severely decreased: 15-29 Renal failure: <15 20 Updated reference range on new analyzer 21 Per NCEP ATP III Guidelines: Results lower than 40 mg/dL are suggestive of increased risk for coronary artery disease. Results > or=to 60 mg/dL are considered a negative risk factor. 22 Per NCEP ATP III Guidelines: Normal Population <130 Patients with medical conditions: CHD/DM Optimal: <100 Borderline high: 130-159 High: 160-189 Very high: >189 23 SCHEDULE 1 WEEK PRIOR TO NEXT VISIT 24 Concerning GFR Guidelines: Normal function or mild renal disease, if clinically at risk: >/=60 mL/min Moderately decreased: 30-59 Severely decreased: 15-29 Renal failure: <15 Glomerular Filtration Rate (GFR) is estimated based on the MDRD equation, which assumes a steady state for creatinine as recommended by the National Kidney Disease Education Program in conjunction with the National Institutes of Health and the [employer] Kid[employer]. Clinical conditions in which it may be necessary to measure GFR by using clearance methods include extremes of age and body size, severe malnutrition or obesity, diseases of skeletal muscle, paraplegia or quadriplegia, vegetarian diet, rapidly changing kidney function, and calculation of the dose of potentially toxic drugs that are excreted by the kidneys. 25 Concerning GFR Guidelines for Americans: Normal function or mild renal disease, if clinically at risk: >/=60 mL/min Moderately decreased: 30-59 Severely decreased: 15-29 Renal failure: <15 26 Concerning GFR Guidelines for Americans: Normal function or mild renal disease, if clinically at risk: >/=60 mL/min Moderately decreased: 30-59 Severely decreased: 15-29 Renal failure: <15 27 Concerning GFR Guidelines: Normal function or mild renal disease, if clinically at risk: >/=60 mL/min Moderately decreased: 30-59 Severely decreased: 15-29 Renal failure: <15 Glomerular Filtration Rate (GFR) is estimated based on the MDRD equation, which assumes a steady state for creatinine as recommended by the National Kidney Disease Education Program in conjunction with the National Institutes of Health and the National Kidney Foundation. Clinical conditions in which it may be necessary to measure GFR by using clearance methods include extremes of age and body size, severe malnutrition or obesity, diseases of skeletal muscle, paraplegia or quadriplegia, vegetarian diet, rapidly changing kidney function, and calculation of the dose of potentially toxic drugs that are excreted by the kidneys. 28 Concerning GFR Guidelines for Americans: Normal function or mild renal disease, if clinically at risk: >/=60 mL/min Moderately decreased: 30-59 Severely decreased: 15-29 Renal failure: <15 29 Concerning GFR Guidelines: Normal function or mild renal disease, if clinically at risk: >/=60 mL/min Moderately decreased: 30-59 Severely decreased: 15-29 Renal failure: <15 Glomerular Filtration Rate (GFR) is estimated based on the MDRD equation, which assumes a steady state for creatinine as recommended by the National Kidney Disease Education Program in conjunction with the National Institutes of Health and the National Kidney Foundation. Clinical conditions in which it may be necessary to measure GFR by using clearance methods include extremes of age and body size, severe malnutrition or obesity, diseases of skeletal muscle, paraplegia or quadriplegia, vegetarian diet, rapidly changing kidney function, and calculation of the dose of potentially toxic drugs that are excreted by the kidneys. 30 Per NCEP ATP III Guidelines: Results lower than 40 mg/dL are suggestive of increased risk for coronary artery disease. Results > or=to 60 mg/dL are considered a negative risk factor. 31 Per NCEP ATP III Guidelines: Normal Population <130 Patients with medical conditions: CHD/DM Optimal: <100 Borderline high: 130-159 High: 160-189 Very high: >189 32 PLEASE COLLECT URINE 33 Concerning GFR Guidelines: Normal function or mild renal disease, if clinically at risk: >/=60 mL/min Moderately decreased: 30-59 Severely decreased: 15-29 Renal failure: <15 Glomerular Filtration Rate (GFR) is estimated based on the MDRD equation, which assumes a steady state for creatinine as recommended by the National Kidney Disease Education Program in conjunction with the National Institutes of Health and the National Kidney Foundation. Clinical conditions in which it may be necessary to measure GFR by using clearance methods include extremes of age and body size, severe malnutrition or obesity, diseases of skeletal muscle, paraplegia or quadriplegia, vegetarian diet, rapidly changing kidney function, and calculation of the dose of potentially toxic drugs that are excreted by the kidneys. 34 Concerning GFR Guidelines for Americans: Normal function or mild renal disease, if clinically at risk: >/=60 mL/min Moderately decreased: 30-59 Severely decreased: 15-29 Renal failure: <15 35 QUERY: Is the Patient Fasting? Y 36 Elevated levels of HbA1c suggest the need for more aggressive treatment of glycemia. The [place] [employer] recommends that a primary goal of therapy should be a HbA1c of <7% and that physicians should re-evaluate the treatment regimen in patients with HbA1c values consistently >8%. 37 For -Mex[place] patients multiply result by 1.180 Procedures Date CPT Code Description Status 11/27/2016 19338 Tympanometry Completed 09/19/2016 91812 Tranforaminal Lumbar Or Sacral Epidural Inject Single Completed Level 05/06/2016 22605 Measure Blood Oxygen Level Multiple Determinations Completed 05/06/2016 63993 Tranforaminal Lumbar Or Sacral Epidural Inject Single Completed Level 01/13/2016 70420 Measure Blood Oxygen Level Single Determination Completed Encounters Type Date Location Provider CPT E/M Dx Office Visit 04/13/2018 4:15p [facility] [place] [address] E11.9 H68.002 K76.0 E55.9 M96.1 G47.33 R80.9 Z68.38 Office Visit 03/04/2018 3:30p [place] David [place], [place] [address] M51.17 [place] M79.1 M51.16 Z68.35 Office Visit 12/18/2017 8:00a [facility] [place] [address] H69.92 Office Visit 10/08/2017 3:30p [facility] [place] [address] E11.9 H68.002 K76.0 E55.9 M96.1 G47.33 R80.9 Z68.41 Office Visit 09/03/2017 3:30p MD David Lei [place], [place] [address] M51.17 V[place] M79.1 M51.16 Office Visit 07/17/2017 3:15p [facility] [place] [address] E11.9 K76.0 E55.9 M96.1 G47.33 Office Visit 03/05/2017 3:30p MD David Lei [place], [place] [address] M96.1 Vicki M51.17 M79.1 Office Visit 02/27/2017 3:15p [facility] [place] [address] E11.9 G47.33 M51.16 Z68.37 Office Visit 11/27/2016 9:30a [facility] [place] [address] H65.02 Office Visit 10/03/2016 10:15[place]- [address] M51.16 [place] M96.1 M51.17 Office Visit 09/23/2016 3:15p [facility] [place] [address] E11.9 G47.33 M51.17 R80.9 Office Visit 09/12/2016 10:15[place]- [address] M51.17 Vicki M96.1 M51.16 Office Visit 06/28/2016 3:45p MD [place] Le[place]-C [address] M51.17 [place] M96.1 M51.16 Office Visit 05/21/2016 2:45p [facility] [place] [address] E11.9 G47.33 M51.16 Office Visit 04/26/2016 8:15[place]- [address] M96.1 Vicki M51.17 M51.16 Office Visit 04/09/2016 11:10a MD Vicki Lei Renee, M.D. 70017 M96.1 M51.17 M51.16 M47.817 M47.816 Office Visit 04/04/2016 9:30a [facility] [place] [address] M54.16 Office Visit 03/28/2016 11:00a [facility] [place] [address] M54.16 Office Visit 01/30/2016 3:00p [facility] [place] [address] E11.9 G47.33 Office Visit 01/13/2016 9:45a [facility] [place] [address] J06.9 J01.90 Office Visit 09/04/2015 3:30p [facility] [place] [address] Z00.00 E11.9 G47.33 Office Visit 06/05/2015 3:00p [facility] [place] [address] 250.00 327.23 381.81 Office Visit 01/31/2015 1:45p [facility] Antwan Thomas [address] 250.00 327.23 Plan of Care Future Appointment(s):10/08/2018 3:20 pm - Schedule, Laboratory at [facility]2018 3:15 pm - Bird Mccann DO at [facility]08/10/2018 3:30 pm - Azalea Hernandez PA -C at Debbie Cobian MD Orhhuuw6606/29/2018 - Mirtha Garcia PAJ01.90 Acute sinusitis, unspecifiedNew Medication:Amoxicillin 875 mgComments:Will treat with amoxPush fluidsTylenol/motrin as needed for fever/painSinus rinse as neededCall withany questions or concernsFollow up:PrnZ68.38 Body mass index (BMI) 38.0-38.9 , adult
[2018-07-15 16:46] VITALS: BP 138/86
--- NOTE | 2018-07-15 17:12 | UC ---
General HPI - HPI Summary HPI Summary: Patient is complaining of "a sinus infection". He states that on the 24th of last month he was diagnosed with a sinus infection and treated with amoxicillin after which she completely recovered. He returns for recurrent head congestion and ear plugged sensation in his ears it began last evening. He has no associated fever or chills. - History of Current Complaint Chief Complaint: UCRespiratory Stated Complaint: SINUSES Time Seen by Provider: 07/15/18 16:37 Hx Obtained From: Patient Onset/Duration: Gradual Onset Timing: Constant Pain Intensity: 1 Associated Signs & Symptoms: Negative: Fever, Headache - Allergy/Home Medications Allergies/Adverse Reactions: Allergies Allergy/AdvReac Type Severity Reaction Status Date / Time seasonal Allergy Runny Nose Uncoded 07/15/18 16:47 PMH/Surg Hx/FS Hx/Imm Hx Previously Healthy: Yes - Surgical History Surgical History: Yes Surgery Procedure, Year, and Place: Lumbar Discectomy, T&A, Ear Tubes as a child - Family History Known Family History: Positive: Cardiac Disease, Hypertension, Diabetes - Social History Occupation: Employed Full-time Lives: With Family Alcohol Use: Occasionally Substance Use Type: None Smoking Status (MU): Never Smoked Tobacco - Immunization History Most Recent Influenza Vaccination: 2017 Vaccination Up to Date: Yes Review of Systems Constitutional: Negative Skin: Negative Eyes: Negative ENT: Ear Ache, Sinus Congestion, Sinus Pain/Tenderness Respiratory: Negative Cardiovascular: Negative Gastrointestinal: Negative Genitourinary: Negative Motor: Negative Neurovascular: Negative Musculoskeletal: Negative Neurological: Negative Psychological: Negative Is Patient Immunocompromised?: No All Other Systems Reviewed And Are Negative: Yes Physical Exam Triage Information Reviewed: Yes Appearance: Well-Appearing Vital Signs: Initial Vital Signs Temp 99.3 F 07/15/18 16:39 Pulse 79 07/15/18 16:39 Resp 18 07/15/18 16:39 BP 138/86 07/15/18 16:39 Pulse Ox 97 07/15/18 16:39 Vital Signs Reviewed: Yes Eyes: Positive: Conjunctiva Clear ENT: Positive: Pharynx normal, Nasal congestion, TMs normal, Sinus tenderness - MAXILLARY. Negative: Nasal drainage Neck: Positive: Supple, Nontender, No Lymphadenopathy Respiratory: Positive: Lungs clear, Normal breath sounds Cardiovascular: Positive: RRR, No Murmur Abdomen Description: Positive: Nontender, No Organomegaly, Soft Bowel Sounds: Positive: Present Musculoskeletal: Positive: ROM Intact Neurological: Positive: Alert Psychological: Positive: Age Appropriate Behavior Skin Exam: Normal Course/Dx - Course Course Of Treatment: Patient is nontoxic. He does not have any bloody purulent drainage from his sinuses and he does not have a fever. His symptoms have only been present since last evening. This is consistent with a viral upper respiratory infection a sibling to avoid antibiotics and have them treat with Flonase nasal steroid spray which she has a home and's three-day history of nasal decongestant such as Afrin suggested but patient and advised must discontinue after 3 days of use. - Differential Dx - Multi-Symptom Provider Diagnoses: URI Discharge - Sign-Out/Discharge Documenting (check all that apply): Patient Departure All imaging exams completed and their final reports reviewed: No Studies - Discharge Plan Condition: Stable Disposition: HOME Patient Education Materials: Upper Respiratory Infection (ED) Referrals: Bird Mccann DO [Primary Care Provider] - 5 Days Additional Instructions: CONSIDER FLONASE PER LABEL. CONSIDER AFRIN PER LABEL X 3 DAYS THEN STOP. - Billing Disposition and Condition Condition: STABLE Disposition: Home
== END 2018-07-15 17:21 | disposition home or self-care (01) ==
LOC: UCCORT 15:58
DX: J06.9 Acute upper respiratory infection, unspecified (principal)
CPT/HCPCS: 99211; G0463

== ENCOUNTER 2019-06-23 15:10 | Emergency (ER) | payer BC ==
[2019-06-23 15:42] VITALS: BP 121/71
--- NOTE | 2019-06-23 15:52 | UC ---
Throat Pain/Nasal Tone HPI - HPI Summary HPI Summary: 49-year-old male comes in with several days of upper respiratory tract infection symptoms. He reports dark rhinorrhea and bilateral maxillary sinus tenderness. Also has a sore throat. No cough or chest congestion. Hot steamy shower does help with the congestion. Patient reports when he gets these symptoms the Z-Anam helps. He also has Flonase at home which he has not used. Patient has some ear pressure worse on the right than the left. Had an ear tube placed on the left about 16 months ago. - History of Current Complaint Chief Complaint: UCRespiratory Stated Complaint: OLVERA,EARS,EYES COMPLAINT Time Seen by Provider: 06/23/19 15:25 Pain Intensity: 5 - Allergies/Home Medications Allergies/Adverse Reactions: Allergies Allergy/AdvReac Type Severity Reaction Status Date / Time seasonal Allergy Runny Nose Uncoded 06/23/19 15:46 PMH/Surg Hx/FS Hx/Imm Hx Previously Healthy: Yes - ear tubes Endocrine History: Diabetes - Surgical History Surgical History: Yes Surgery Procedure, Year, and Place: Lumbar Discectomy, T&A, Ear Tubes as a child and in 2017 - Family History Known Family History: Positive: Cardiac Disease, Hypertension, Diabetes - Social History Alcohol Use: Occasionally Substance Use Type: None Smoking Status (MU): Never Smoked Tobacco - Immunization History Most Recent Influenza Vaccination: 2017 Vaccination Up to Date: Yes Review of Systems All Other Systems Reviewed And Are Negative: Yes Constitutional: Positive: Negative Skin: Positive: Negative Eyes: Positive: Negative ENT: Positive: Sore Throat, Ear Ache, Nasal Discharge, Sinus Congestion, Sinus Pain/Tenderness Respiratory: Positive: Negative Cardiovascular: Positive: Negative Gastrointestinal: Positive: Negative Motor: Positive: Negative Neurovascular: Positive: Negative Musculoskeletal: Positive: Negative Neurological: Positive: Negative Psychological: Positive: Negative Is Patient Immunocompromised?: No Physical Exam Triage Information Reviewed: Yes Appearance: Well-Appearing, No Pain Distress, Well-Nourished Vital Signs: Initial Vital Signs Temp 97.7 F 06/23/19 15:33 Pulse 78 06/23/19 15:33 Resp 18 06/23/19 15:33 BP 121/71 06/23/19 15:33 Pulse Ox 98 06/23/19 15:33 Vital Signs Reviewed: Yes Eye Exam: Normal Eyes: Positive: Conjunctiva Clear ENT: Positive: Pharyngeal erythema, Nasal congestion, Nasal drainage, TM dull - rt, Other - There is an ear tube in the left eardrum appears to still be in the TM. Neck: Positive: Supple Respiratory: Positive: Lungs clear, Normal breath sounds, No respiratory distress Cardiovascular: Positive: RRR Musculoskeletal: Positive: Strength Intact, ROM Intact Neurological: Positive: Alert Psychological: Positive: Age Appropriate Behavior Skin Exam: Normal Throat Pain/Nasal Course/Dx - Course Course Of Treatment: DISCUSSED VIRAL VERSES BACTERIAL INFECTION AND THE ROLE OF ANTIBIOTICS. PATIENT PREFERS TO BE ON ANTIBIOTICS AT THIS TIME. - Differential Dx/Diagnosis Provider Diagnosis: Sinusitis Discharge ED - Sign-Out/Discharge Documenting (check all that apply): Patient Departure All imaging exams completed and their final reports reviewed: No Studies - Discharge Plan Condition: Stable Disposition: HOME Prescriptions: Azithromyxin ANAM (NF) [Z-Anam (Zithromax) 250 mg tabs #6] 2 tab PO .TODAY, THEN 1 DAILY #6 tab Patient Education Materials: Sinusitis (ED) Referrals: Bird Mccann DO [Primary Care Provider] - Additional Instructions: FOLLOW UP WITH YOUR DOCTOR IF NOT COMPLETELY IMPROVED. GET REEVALUATED SOONER IF WORSE OR ANY QUESTIONS OR CONCERNS. - Billing Disposition and Condition Condition: STABLE Disposition: Home
== END 2019-06-23 15:58 | disposition home or self-care (01) ==
LOC: UCCORT 15:10
DX: J32.9 Chronic sinusitis, unspecified (principal); E11.9 Type 2 diabetes mellitus without complications
CPT/HCPCS: 99212; G0463

== ENCOUNTER 2019-10-26 17:14 | Emergency (ER) | payer BC ==
--- NOTE | 2019-10-26 17:48 | UC ---
Throat Pain/Nasal Tone HPI - HPI Summary HPI Summary: 49 yo male presents with sinus complaint. He tells me that over the last week has been having sinus pain/pressure/congestion. Has been taking mucinex and OTC cold medication with no relief. He states he gets a "sinus infection" every year. Denies fever, chills, sore throat, cough, rash. - History of Current Complaint Stated Complaint: SINUS Time Seen by Provider: 10/26/19 17:48 Hx Obtained From: Patient Severity: Mild Pain Intensity: 4 Pain Scale Used: 0-10 Numeric - Allergies/Home Medications Allergies/Adverse Reactions: Allergies Allergy/AdvReac Type Severity Reaction Status Date / Time seasonal Allergy Runny Nose Uncoded 10/26/19 17:59 Home Medications: Home Medications Pregabalin 100 mg CAP (*) [Lyrica 100 mg CAP (*)] 50 mg BID 10/26/19 [History Confirmed 10/26/19] PMH/Surg Hx/FS Hx/Imm Hx Endocrine History: Diabetes - Surgical History Surgical History: Yes Surgery Procedure, Year, and Place: Lumbar Discectomy, T&A, Ear Tubes as a child and in 2017 - Family History Known Family History: Positive: Cardiac Disease, Hypertension, Diabetes - Social History Lives: With Family Alcohol Use: Occasionally Substance Use Type: None Smoking Status (MU): Never Smoked Tobacco - Immunization History Most Recent Influenza Vaccination: 2017 Vaccination Up to Date: Yes Review of Systems All Other Systems Reviewed And Are Negative: No Constitutional: Positive: Negative Skin: Positive: Negative Eyes: Positive: Negative ENT: Positive: Nasal Discharge, Sinus Congestion, Sinus Pain/Tenderness Respiratory: Positive: Negative Cardiovascular: Positive: Negative Gastrointestinal: Positive: Negative Neurological: Positive: Negative Psychological: Positive: Negative Physical Exam - Summary Physical Exam Summary: GENERAL: NAD. WDWN. No pain distress. SKIN: No rashes, sores, lesions, or open wounds. HEENT: Head: AT/NC Eyes: EOM intact. Conjunctiva clear without inflammation or discharge. Ears: Hearing grossly normal. TMs intact, no bulging, erythema, or edema. Nose: Nasal mucosa mildly swollen and erythematous without discharge. TTP maxillary > frontal sinus. Positive post nasal drip Throat: Posterior oropharynx without exudates, erythema, or tonsillar enlargement. Uvula midline. NECK: Supple. Nontender. No lymphadenopathy. CHEST: CTAB. No r/r/w. No accessory muscle use. Breathing comfortably and in no distress. CV: RRR. Pulses intact. NEURO: Alert. PSYCH: Age appropriate behavior. Triage Information Reviewed: Yes Vital Signs: Vital Signs: Temp Pulse Resp BP Pulse Ox 98.7 F 73 17 140/84 98 10/26/19 17:57 10/26/19 17:57 10/26/19 17:57 10/26/19 17:57 10/26/19 17:57 Vital Signs Reviewed: Yes Throat Pain/Nasal Course/Dx - Course Course Of Treatment: Sinusitis - Differential Dx/Diagnosis Provider Diagnosis: Sinusitis Discharge ED - Sign-Out/Discharge Documenting (check all that apply): Patient Departure All imaging exams completed and their final reports reviewed: No Studies - Discharge Plan Condition: Stable Disposition: HOME Prescriptions: Azithromycin TAB* [Zithromax TAB (Z-ANAM) 250 mg #6 tabs] 2 tab PO .TODAY, THEN 1 DAILY #1 anam Patient Education Materials: Sinusitis (ED) Referrals: Bird Mccann DO [Primary Care Provider] - Additional Instructions: If you develop a fever, shortness of breath, chest pain, new or worsening symptoms - please call your PCP or go to the ED immediately. Your blood pressure was high at todays visit. Please see your primary provider within 4 weeks for recheck and re-evaluation. - Billing Disposition and Condition Condition: STABLE Disposition: Home
--- OUTSIDE RECORDS SUMMARY | 2019-10-26 17:48 | XMS REPORT | Continuity of Care Document ---
:1970 External Reference #:[id number] Author Name Bird Mccann DO Address [address] [place] [id number] Care Team Providers Name Role Phone Debbie Cobian MD - Physical Medicine & Care Team Information Doctor Of Pharmacy Rehabilitation Bird Mccann DO - Family Medicine Care Team Information Doctor Of Pharmacy [phone] Problems Active Problems Provider Date Obstructive sleep apnea of adult Antwan ThomasDO Onset: 10/24/2014 Type 2 diabetes mellitus Debbie Cobian M.D. Onset: 04/09/2016 Social History Type Date Description Comments Sex Unknown Tobacco Use Start: Unknown Never Smoked Cigarettes ETOH Use Denies alcohol use Tobacco Use Start: Unknown Patient has never smoked Allergies, Adverse Reactions, Alerts Description No Known Drug Allergies Medications Active Medications SIG Qnty Indications Ordering Date Provider Ergocalciferol take 1 capsule 12caps Bird Mccann, 10/13/2019 1.25mg by mouth every DO (26037 Ut) Capsules week Pregabalin take 1 capsule 60caps M51.17 Debbie Cobian, 10/11/2019 50mg Capsules by mouth two M.D. times a day M51.16 M96.1 Freestyle 28G Lancets use as directed 200units Bird Mccann, 05/27/2019 twice a day DO Cyclobenzaprine HCL take 1 to 2 30tabs Debbie Cobina, 08/26/2018 5mg Tablets tablets at M.D. bedtime if needed Freestyle Insulinx Blood test every day Bird Mccann, 10/10/2017 Glucose Test Strips and as needed, DO Strips dx:e11.65 Freestyle Lancets as directed twice 200units Bird Mccann, 10/10/2017 Misc daily DO Lisinopril take 1 tablet by 90tabs E11.9 Bird Mccann, 07/17/2017 5mg Tablets mouth once daily DO Freestyle Lite Test Test daily and if 100units Bird Mccann, 01/08/2016 Strip needed DO Metformin HCL ER (Osm) take 1 tablet by 90tabs E11.9 Bird Mccann, 01/31 1000mg mouth every DO Tablets ER 24HR morning Medications Administered in Office Medication SIG Qnty Indications Ordering Provider Date Low Osmolar Contrast Material Debbie Cobian M.D. 09/19/2016 200-299MG/ML Iodine 1ML Injection Decadron 1MG Dexamethasone Debbie Gonsales M.D. 09/19/2016 Phosphate 1MG Injection Low Osmolar Contrast Material Debbie Cobian M.D. 05/06/2016 200-299MG/ML Iodine 1ML Injection Decadron 1MG Dexamethasone Debbie Gonsales M.D. 05/06/2016 Phosphate 1MG Injection Immunizations CPT Code Status Date Vaccine Reaction Lot # [id number] Given 08/22/2019 Afluria Or Fluvirin Flu Vac Intramuscular 06912 Given 08/14/2018 Influenza Vac, Quadrivalent, Split, 0.5mL Dosage, Im Use 27597 Given 07/27/2017 Influenza Vac, Quadrivalent, Split, 0.5mL Dosage, Im Use Q2037 Given 08/06/2015 Fluvirin Immunization Given At Pharmacy [facility]. [address] Given 08/06/2015 Influenza Vaccine Preservative Free 6-35 Months Of Age [address] Given 08/08/2011 Afluria Or Fluvirin Flu Vac VIS DATE 04/30/11 Intramuscular 04276 Refused 04/14/2019 Tdap (Adacel) Ages 7 And Above Only Q2035 Refused 06/29/2018 Afluria Imunization Vital Signs Date Vital Result Comment 10/13/2019 3:29pm Weight 244.00 lb Heart Rate 80 /min BP Systolic 144 mmHg BP Diastolic 84 mmHg Respiratory Rate 17 /min Height 64 inches 5'4" BMI (Body Mass Index) 41.9 kg/m2 09/13/2019 3:29pm Weight 220.00 lb Heart Rate 77 /min BP Systolic 127 mmHg BP Diastolic 77 mmHg Results Test Acquired Facility Test Result H/L Range Note Date Hemoglobin A1c 10/09/2019 [facility] Glycohemoglobin 7.0 % High 4.2-6.3 1, 2 (315)- - (A1c) eAG 154 mg/dL Comprehensive Met 10/09/2019 [facility] Glucose 144 mg/ dL High 74-106 Panel-FCMG (315)- - BUN 13 mg/dL Normal 7-18 Creatinine 0.9 mg/dL Normal 0.6-1.3 Glom Filtration Rate, Estimate >60 mL/min >60 If >60 mL/min >60 3 BUN/Creat 14.4 ratio Sodium 137 mmol/L Normal 136-145 Potassium 4.2 mmol/L Normal 3.5-5.1 Chloride 108 mmol/L High 98-107 Carbon Dioxide 24 mmol/L Normal 21-32 Anion Gap 5 mEq/L Low 8-16 Calcium 8.9 mg/dL Normal 8.5-10.1 Total Protein 7.9 g/dL Normal 6.4-8.2 Albumin 3.6 g/dL Normal 3.4-5.0 Globulin 4.3 g/dL Normal 1.9-4.3 Alb/Glob 0.8 ratio Bilirubin,Total 0.9 mg/dL Normal 0.2-1.0 Sgot/Ast 55 U/L High 15-37 SGPT/Alt 91 U/L High 12-78 Alkaline Phosphatase 79 U/L Normal 45-117 Laboratory test 10/09/2019 [facility] Vitamin 15.4 ng/mL Low 30.0-100.0 4 finding (315)- - D,25-Hydroxy Lipid 10/09/2019 [facility] Cholesterol 189 mg/dL < 200 5 (315)- - Triglycerides 62 mg/dL <150 6 HDL Cholesterol 43 mg/dL >40 7 LDL-Cholesterol 134 mg/dL < 100 8 Laboratory test 10/09/2019 [facility] Prostate 0.39 ng/ mL < 4.0 9 finding (315)- - Specific Antigen 1 E11.9, K76.0, E55.9, Z12.5 2 Elevated levels of HbA1c suggest the need for more aggressive treatment of glycemia. The [place] [employer] recommends that a primary goal of therapy should be a HbA1c of <7% and that physicians should re-evaluate the treatment regimen in patients with HbA1c values consistently >8%. 3 Note: Persistent reduction for 3 months or more in an eGFR <60 mL/min/1.73 m2 defines CKD. Patients with eGFR values >/=60 mL/min/1.73 m2 may also have CKD if evidence of persistent proteinuria is present. The original MDRD equation for estimated GFR is not valid for patients less than 18 years of age. Additional information may be found at www.kdoqi.org. 4 Vitamin D deficiency has been defined by the [place] [employer] and an Endocrine Society practice guideline as a level of serum 25-OH vitamin D less than 20 ng/mL (1,2). The Endocrine Society went on to further define vitamin D insufficiency as a level between 21 and 29 ng/mL (2). 1. IOM ([place] [employer]). 2010. Dietary reference intakes for calcium and D. [place]: The National Academies Press. 2. Wally MF, Demetrius BRISENO, Kassidy OLVERA, et al. Evaluation, treatment, and prevention of vitamin D deficiency: an Endocrine Society clinical practice guideline. JCEM. 2010; 96(7):1911-30. Performed at: RN - [facility] [address] [id number] Bridge Operator: Kelli Powers MD, Phone: [phone] 5 Reference Guidelines*: Desirable: ........... < 200 mg/dL Borderline High: ..... 200-239 mg/dL High: ................ >= 240 mg/dL * The National Cholesterol Education Program (NCEP) 6 Reference Guidelines*: Normal: ............. < 150 mg/dL Borderline High: .... 150-199 mg/dL High: ............... 200-499 mg/dL Very High: .......... > 500 mg/dL * Source: National Cholesterol Education Program (NCEP) 7 Reference Guidelines*: Low HDL: ..... < 40 mg/dL Normal: ..... 40-60 mg/dL Desirable: ... > 60 mg/dL *The National Cholesterol Education Program(NCEP) 8 Reference Guidelines*: Optimal:........... <100 mg/dL Near Optimal....... 100-129 mg/dL Borderline High.... 130-159 mg/dL High............... 160-189 mg/dL Very High.......... >=190 mg/dL * Source: National Cholesterol Education Program (NCEP) 9 THIS ASSAY IS NOT INTENDED A CANCER SCREENING TEST The concentration of PSA in a given specimen, determined with assays from different manufacturers, can vary due to differences in assay methods and reagent specificity. Values obtained from different assay methods cannot be used interchangeably. Method: Locallyta Chemiluminescent immunoassay. Procedures Description No Information Available Medical Devices Description No Information Available Encounters Type Date Location Provider Dx Diagnosis Office Visit 09/13/2019 MD David Lei Rachel, M51.17 Intvrt disc 3:00p Vicki QUIÑONEZ disorders w radiculopathy, lumbosacral region M51.16 Intervertebral disc disorders w radiculopathy, lumbar region M79.18 Myalgia, other site E66.9 Obesity, unspecified Office Visit 04/14/2019 1:30p [facility] Bird Mccann DO E11.9 Type 2 diabetes mellitus without complications K76.0 Fatty (change of) liver, not elsewhere classified E55.9 Vitamin D deficiency, unspecified M96.1 Postlaminectomy syndrome, not elsewhere classified G47.33 Obstructive sleep apnea (adult) (pediatric) R80.9 Proteinuria, unspecified E66.01 Morbid (severe) obesity due to excess calories Z13.31 Encounter for screening for depression Z68.41 Body mass index (BMI) 40.0-44.9, adult Assessments Date Code Description Provider 10/13/2019 E11.9 Type 2 diabetes mellitus without complications Bird Mccann DO 10/13/2019 K76.0 Fatty (change of) liver, not elsewhere Bird Mccann DO classified 10/13/2019 E55.9 Vitamin D deficiency, unspecified Bird Mccann DO 10/13/2019 M96.1 Postlaminectomy syndrome, not elsewhere Bird Mccann DO classified 10/13/2019 G47.33 Obstructive sleep apnea (adult) (pediatric) iBrd Mccann DO 10/13/2019 R80.9 Proteinuria, unspecified Bird Mccann DO 10/13/2019 E66.01 Morbid (severe) obesity due to excess calories Bird Mccann DO 10/13/2019 E78.2 Mixed hyperlipidemia Bird Mccann DO 10/13/2019 H68.003 Unspecified Eustachian salpingitis, bilateral Bird Mccann DO 10/13/2019 Z68.41 Body mass index (BMI) 40.0-44.9, adult Bird Mccann DO 09/13/2019 M51.17 Intervertebral disc disorders with Bossi, Azalea, PA-C radiculopathy, lumbosacral region 09/13/2019 M51.16 Intervertebral disc disorders with Bossi, Azalea, PA-C radiculopathy, lumbar region 09/13/2019 M79.18 Myalgia, other site Bossi, Azalea, PA-C 09/13/2019 E66.9 Obesity, unspecified Bossi, Azalea, PA-C 04/14/2019 E11.9 Type 2 diabetes mellitus without complications Bird Mccann DO 04/14/2019 K76.0 Fatty (change of) liver, not elsewhere Bird Mccann DO classified 04/14/2019 E55.9 Vitamin D deficiency, unspecified Bird Mccann DO 04/14/2019 M96.1 Postlaminectomy syndrome, not elsewhere Bird Mccann DO classified 04/14/2019 G47.33 Obstructive sleep apnea (adult) (pediatric) Bird Mccann DO 04/14/2019 R80.9 Proteinuria, unspecified Bird Mccann DO 04/14/2019 E66.01 Morbid (severe) obesity due to excess calories Bird Mccann DO 04/14/2019 Z13.31 Encounter for screening for depression Bird Mccann DO 04/14/2019 Z68.41 Body mass index (BMI) 40.0-44.9, adult Bird Mccann DO Plan of Treatment Future Appointment(s):04/10/2020 12:30 pm - Schedule, Laboratory at [facility]2019 1:00 pm - Bird Mccann DO at [facility]03/15/2020 3:15 pm - Azalea Hernandez PA -C at Debbie Cobian MD Otliljm2110/13/2019 - Bird Mccann DOE11.9 Type 2 diabetes mellitus without complicationsNew Labs:Hemoglobin A1c, Ordered: CBC with Auto Diff-fcmg, Ordered: 10/13/19Lipid, Ordered: 10/13/19TSH, Ordered : 10/13/19Comments:The patient's labs were reviewed with the patient that the A1c was elevated at 7.0. 1. Continue taking Metformin as directed. 2. The patient will benefit from maintaining a diabetic diet and a regular exercise regimen and cutting back on pasta, potatoes, and breads.3. May check the sugars on regular basis and maintain a log of it and bring it with him during the next visit.4.We will recheck in thefuture.5. We will continue to monitor.Follow up: Blood work in 6 months and will follow up with me a couple of days later.K76.0 Fatty (change of) liver, not elsewhere classifiedNew Labs:Comprehensive Met Panel-FCMG, Ordered: 10/13/19E55.9 Vitamin D deficiency, unspecifiedNew Labs: Vitamin D 25 Hydroxy, Ordered: 10/13/19Comments:Vitamin was 15.4 when last checked. Recommended the patient to take Vtiamin Supplements. Will continue to [facility].M96.1 Postlaminectomy syndrome, not elsewhere hognuifntbB96.33 Obstructive sleep apnea (adult) (pediatric)Comments:Improved with the use of CPAP. Continue using it. Will continue to monitor.R80.9 Proteinuria, yxpkrxqizeiX33.01 Morbid (severe) obesity due to excess caloriesComments:The patient had gained 24lbs of body weight since the previous visit and he currently weighs around 244lbs. The patient was advised on healthy diet and a regular exercise regimen. We discussed the risks associated with obesity and high levels of body fat. We will continue to monitor the patient's weight and the patient is advised to reduce the number of calories in diet.E78.2 Mixed hyperlipidemiaComments:Labs were reviewed in detail with the patient. LDL is elevated. The patient may benefit from decreasing the total amount of fat. Can choose lean meats, fat free or 1% fat milk, and low-fat dairy products such as yogurt and cheese. Would benefit from replacing unhealthy fats with healthy fats. Would benefit by eating foods which are high in fiber. We will recheck it in the future. We will continue tomonitor.H68.003 Unspecified Eustachian salpingitis, bilateralComments:Continue using Sudafed, Mucinex, and Nasal drops. Follow up with Dr. Guerra as scheduled. Also can benefit from gargling Listerine or salt water. Will continue to monitor.Z68.41 Body mass index (BMI) 40.0-44.9, adultComments:BMI is at 41.9. The patient should try to lose weight with low-calorie diet and exercises. We willcontinue to monitor weight and BMI periodically.AllNew Medication:Ergocalciferol 1.25 mg (93207 Ut) - take 1 capsule by mouth every week Functional Status Description No Information Available Mental Status Description No Information Available Referrals Description No Information Available
[2019-10-26 17:59] VITALS: BP 140/84
== END 2019-10-26 18:04 | disposition home or self-care (01) ==
LOC: UCCORT 17:14
DX: J32.9 Chronic sinusitis, unspecified (principal); E11.9 Type 2 diabetes mellitus without complications; Z91.09 Other allergy status, other than to drugs and biological substances
CPT/HCPCS: 99212; G0463

== ENCOUNTER 2019-11-24 15:19 | Emergency (ER) | payer BC ==
[2019-11-24 16:25] VITALS: BP 148/76
--- NOTE | 2019-11-24 16:29 | UC ---
Throat Pain/Nasal Tone HPI - HPI Summary HPI Summary: Patient is a 49yo female presenting with nasal congestion x1 week and sinus pain /pressure worsening over the last 2 days. Notes green/yellow nasal discharge and PND. Notes "plugged feeling" in b/l ears. Denies sore throat. Denies cough. Denies fever and chills. Taking mucinex without relief. - History of Current Complaint Chief Complaint: UCGeneralIllness Stated Complaint: SINUS ISSUES Hx Obtained From: Patient Pain Intensity: 4 Pain Scale Used: 0-10 Numeric - Allergies/Home Medications Allergies/Adverse Reactions: Allergies Allergy/AdvReac Type Severity Reaction Status Date / Time seasonal Allergy Runny Nose Uncoded 11/24/19 16:24 Home Medications: Home Medications metFORMIN* [Glucophage 500 MG TAB *] 1,000 mg PO DAILY 01/24/15 [History Confirmed 11/24/19] Pregabalin 100 mg CAP (*) [Lyrica 100 mg CAP (*)] 50 mg PO BID 10/26/19 [ History Confirmed 11/24/19] Amoxicillin/Clavulanate TAB* [Augmentin TAB 875*] 875 mg PO BID #14 tab [Rx] guaiFENesin ER TAB [Mucinex*] 600 mg PO ONCE 11/24/19 [History Confirmed ] PMH/Surg Hx/FS Hx/Imm Hx - Surgical History Surgical History: Yes Surgery Procedure, Year, and Place: Lumbar Discectomy, T&A, Ear Tubes as a child and in 2017 - Family History Known Family History: Positive: Cardiac Disease, Hypertension, Diabetes - Social History Alcohol Use: None Substance Use Type: None Smoking Status (MU): Never Smoked Tobacco - Immunization History Most Recent Influenza Vaccination: 2017 Vaccination Up to Date: Yes Review of Systems All Other Systems Reviewed And Are Negative: Yes Constitutional: Positive: Negative ENT: Positive: Nasal Discharge - yellow/green, Sinus Congestion, Sinus Pain/ Tenderness. Negative: Sore Throat Respiratory: Positive: Negative Cardiovascular: Positive: Negative Gastrointestinal: Positive: Negative Musculoskeletal: Positive: Negative Neurological/Mental Status: Positive: Negative Physical Exam Triage Information Reviewed: Yes Appearance: Well-Appearing Vital Signs: Initial Vital Signs Temp 98.2 F 11/24/19 16:22 Pulse 79 11/24/19 16:22 Resp 16 02/19/20 16:22 BP 148/76 11/24/19 16:22 Pulse Ox 97 11/24/19 16:22 Vital Signs Reviewed: Yes Eyes: Positive: Conjunctiva Clear ENT: Positive: Hearing grossly normal, Pharynx normal, Nasal congestion, Nasal drainage, TMs normal, Sinus tenderness - maxillary, Uvula midline. Negative: Tonsillar swelling, Tonsillar exudate Neck exam: Normal Neck: Positive: Supple Respiratory Exam: Normal Respiratory: Positive: Lungs clear, Normal breath sounds, No respiratory distress Cardiovascular Exam: Normal Cardiovascular: Positive: RRR Neurological: Positive: Alert Psychological: Positive: Age Appropriate Behavior Skin Exam: Normal - no erythema or ecchymosis Throat Pain/Nasal Course/Dx - Course Course Of Treatment: I treated patient with augmentin for sinusitis and instructed to continue with mucinex and flonase. Instructed to follow up with pcp or [facility] if symptoms persist or worsen. Patient voiced understanding and agreed with treatment plan. - Differential Dx/Diagnosis Differential Diagnosis/HQI/PQRI: Sinusitis, URI Provider Diagnosis: Sinusitis Discharge ED - Sign-Out/Discharge Documenting (check all that apply): Patient Departure All imaging exams completed and their final reports reviewed: No Studies - Discharge Plan Condition: Stable Disposition: HOME Prescriptions: Amoxicillin/Clavulanate TAB* [Augmentin TAB 875*] 875 mg PO BID #14 tab Patient Education Materials: Sinusitis (ED) Referrals: [facility] [Outside] - If Needed Bird Mccann DO [Primary Care Provider] - If Needed Additional Instructions: Take Augmentin for treatment of your sinusitis. You may continue with mucines and Flonase for symptomatic relief. Follow up with your primary care provider or the [facility] if symptoms do not resolve within 7 days. - Billing Disposition and Condition Condition: STABLE Disposition: Home
== END 2019-11-24 16:52 | disposition home or self-care (01) ==
LOC: UCCORT 15:19
DX: J32.9 Chronic sinusitis, unspecified (principal); Z91.09 Other allergy status, other than to drugs and biological substances
CPT/HCPCS: 99212; G0463